=== PATIENT | female | born 1940 | race Caucasian/White ===

== ENCOUNTER 2020-06-02 11:47 | Inpatient (IN) | payer MEDICARE, BC ==
[~2020-06-02] VITALS: Ht 162.6 cm; Wt 50.8 kg
[2020-06-02] MEDS ORDERED: ACETAMINOPHEN ES 500 MG TABLET PO ONE (12:00)
[2020-06-02] MEDS ORDERED: IV NORMAL SALINE 500 ML BAG IV ONE (12:00)
[2020-06-02] MEDS ORDERED: DENO60DI SQ (12:27)
[2020-06-02] MEDS ORDERED: MELO7.5T12 PO (12:27)
[2020-06-02] MEDS ORDERED: FAMO40TA7 PO (12:27)
[2020-06-02] MEDS ORDERED: HYDR25TA4 PO (12:27)
[2020-06-02] MEDS ORDERED: ASPI81TA31 PO (12:27)
[2020-06-02] MEDS ORDERED: GLUC1TAB9 PO (12:27)
[2020-06-02] MEDS ORDERED: OLME40TA12 PO (12:27)
[2020-06-02] MEDS ORDERED: UBID50TA3 PO (12:27)
[2020-06-02] MEDS ORDERED: METO-356 PO (12:27)
[2020-06-02] MEDS ORDERED: OMEG1CAP PO (12:27)
[2020-06-02] MEDS ORDERED: [UNRECOGNIZED DRUG - CODE] PO (12:27)
[2020-06-02] MEDS ORDERED: CYAN100T44 PO (12:27)
[2020-06-02] MEDS ORDERED: ESTRADIOL 0.01% (12:27)
[2020-06-02] MEDS ORDERED: CAL MAG PO (12:27)
[2020-06-02] MEDS ORDERED: FLAX10003 PO (12:27)
[2020-06-02] MEDS ORDERED: VITAMIN D PO (12:27)
[2020-06-02] MEDS ORDERED: ACETAMINOPHEN 650 MG SUPP.RECT RC ONE ×2 (12:49→13:15)
[2020-06-02 13:09] LABS: ALANINE AMINOTRANSFERASE 103 U/L (14-59); ALKALINE PHOSPHATASE 33 U/L (50-136); ASPARTATE AMINOTRANSFERASE 180 U/L (15-37); BILIRUBIN,DIRECT 0.4 mg/dL (0.0-0.2); BILIRUBIN,TOTAL 0.8 mg/dL (0.2-1.0); CARBON DIOXIDE 24 mmol/L (21-32); CHLORIDE 91 mmol/L (98-107); CREATININE 1.8 mg/dL (0.6-1.3); GLUCOSE 118 mg/dL (74-106); TOTAL PROTEIN, SERUM 7.3 g/dL (6.4-8.2); UREA NITROGEN, BLOOD 30 mg/dL (7-18)
--- NOTE | 2020-06-02 13:13 | NUR ---
pt is in room #2a. dr Butler evaluated the pt.
--- NOTE | 2020-06-02 13:33 | NUR ---
MIAN Saeed [phone]
[2020-06-02 13:34] LABS: *BILIRUBIN,URIN NEGATIVE (NEGATIVE); *BLOOD, URINE 3+ (NEGATIVE); *COLOR,URINE YELLOW (YELLOW); *KETONES,URINE 2+ (NEGATIVE); *UROBILINOGEN,URINE 0.2 E.U./dl (NORMAL); LEUKOCYTE ESTERASE ,URINE NEGATIVE (NEGATIVE); NITRITE, URINE NEGATIVE (NEGATIVE); UGLUCOSE NEGATIVE (NEGATIVE)
[2020-06-02 13:35] LABS: POTASSIUM 2.3 mmol/L (3.5-5.1)
[2020-06-02] MEDS: POTASSIUM CHLORIDE 50 ML IV SCH ×5 (14:00→17:00)
[2020-06-02 14:03] LABS: *CLARITY,URINE SLIGHTLY CLOUDY (CLEAR)
[2020-06-02 14:04] LABS: BACTERIA,URINE MANY /HPF (NONE SEEN); SQUAMOUS EPITHELIAL CELL,UR FEW /HPF (NONE SEEN)
[2020-06-02] MEDS ORDERED: POTASSIUM CHLORIDE 200 ML ONE (14:08)
[2020-06-02] MEDS ORDERED: IV NORMAL SALINE 1000 ML BAG IV ONE (14:15)
[2020-06-02] MEDS ORDERED: PIPERACILLIN SODIUM/TAZOBACTAM 3.375 G in IV DEXTROSE 5% 50 ML IV ONE (14:15)
[2020-06-02] MEDS ORDERED: VANCOMYCIN IV 1,000 MG in IV DEXTROSE 5% 250 ML IV ONE (14:15)
[2020-06-02] MEDS ORDERED: PIPERACILLIN/TAZOBACTAM/D5W 50 ML IV ONE (14:47)
[2020-06-02 14:56] LABS: HEMATOCRIT 26.2 % (31.2-41.9)
[2020-06-02 14:58] LABS: EOSINOPHILS % (AUTO) 0.6 % (0.0-7.0); HEMOGLOBIN 8.9 g/dL (10.9-14.3); LYMPHOCYTES # (AUTO) 0.2 K/uL (20.0-40.0); LYMPHOCYTES % (AUTO) 12.4 % (20.5-51.5); MEAN CORPUSCULAR HGB CONC 34 g/dL (32.3-35.6); MEAN CORPUSCULAR VOLUME 82.4 fL (75.5-95.3); MONOCYTES # (AUTO) 1.2 K/uL (2.0-10.0); MONOCYTES % (AUTO) 74.4 % (0.0-11.0); NEUTROPHILS # (AUTO) 0.2 K/uL (1.8-8.9); NEUTROPHILS % (AUTO) 12.6 % (38.5-71.5); RED BLOOD CELL COUNT(AUTO) 3.18 MIL/uL (3.63-4.92)
[2020-06-02 15:16] LABS: PLATELET COUNT (AUTO) 15 K/uL (179-408); WHITE BLOOD COUNT (AUTO) 1.6 K/uL (3.8-11.8)
[2020-06-02] MEDS ORDERED: VANCOMYCIN IV 200 ML ONE (15:31)
[2020-06-02] MEDS ORDERED: ONDANSETRON 4 MG/2 ML VIAL IV PRN (17:00)
[2020-06-02] MEDS ORDERED: ACETAMINOPHEN 325 MG TABLET PO PRN (17:00)
[2020-06-02] MEDS ORDERED: CEFTRIAXONE 1 G in IV DEXTROSE 5% 50 ML IV SCH (17:00)
[2020-06-02] MEDS ORDERED: MORPHINE SULFATE 2 MG/1 ML DISP.SYRIN IV PRN (17:00)
[2020-06-02] MEDS ORDERED: CEFTRIAXONE /D5W 50ML IVPB **ER PYXIS IV ONE (17:19)
[2020-06-02] MEDS ORDERED: TBO-FILGRASTIM 480 MCG/0.8 ML SYRINGE SQ ONE (18:00)
[2020-06-02] MEDS: PIPERACILLIN/TAZO 2.25 G in IV DEXTROSE 5% 50 ML IV SCH (18:08)
[2020-06-02] MEDS ORDERED: PIPERACILLIN/TAZO 2.25 GM VIAL ONE (18:12)
[2020-06-02 18:46] LABS: BAND % (MANUAL) 9 % (0-10); LYMPHOCYTES % (MANUAL) 69 % (20-40); MONOCYTES % (MANUAL) 8 % (2-10); NEUTROPHILS % (MANUAL) 13 % (42-75)
[2020-06-02 18:47] LABS: EOSINOPHILS % (MANUAL) 1 % (0-8)
--- NOTE | 2020-06-02 23:25 | NUR ---
Transfered to 3rd floor Tele via hospital bed with no distress noted.
--- NOTE | 2020-06-02 23:30 | NUR ---
PATIENT ADMITTED ON TELE FLOOR UNDER THE CARE OF DR. VALENCIA. PATIENT AWAKE BUT GARBLE SPEECH. PATIENT TELE MONITOR SINUS RYTHM SINUS TACHY. PATIENT ON REVERSE ISOLATION, PATIENT HAS R AND L BUTTOCK REDNESS, R LATERAL KNEE BRUISE, R LATERAL FOOT, AND R HEEL DTI. AND LEFT KNEE BRUISE. PATIENT HAS DEEP LABORED BREATHING, WILL MEDICATE FOR PAIN. CONT TO MONITOR.
[2020-06-03] VITALS: BP 116/55
[2020-06-03] MEDS ORDERED: PIPERACILLIN/TAZO 2.25 GM VIAL ONE ×2 (00:20→18:17)
[2020-06-03] MEDS: PIPERACILLIN/TAZO 2.25 G in IV DEXTROSE 5% 50 ML IV SCH ×4 (00:40→18:10)
[2020-06-03] MEDS: DOCUSATE SODIUM 100 MG CAPSULE PO SCH ×2 (00:40→21:00)
--- NOTE | 2020-06-03 03:32 | NUR ---
PATIENT DAUGHTER CALLED FROM [place] AND ASKING FOR UPDATE OF THE PATIENT. PATIENT DAUGHTER SAID THAT HER MOTHER HAS [place] DISEASE AND DONT KNOW HOW FAR IS THE DISEASE. DAUGHTER MENTION ALSO THAT HER MOTHER HAS PROLAPSE BLADDER, AND HARD OF HEARING.
[2020-06-03 04:46] VITALS: BP 72/65
[2020-06-03] MEDS ORDERED: IV NS 1000 ML 1,000 ML IV ONE (05:00)
--- NOTE | 2020-06-03 05:02 | NUR ---
PATIENT HAS LOW BP, 70/40, BS 55, TACHYPNEIC, RAPID RESPONSE WAS CALLED, NOTIFY MATTY MEDICAL RECORDS DIRECTOR WITH ORDER.
[2020-06-03 05:11] LABS: ABG BASE EXCESS -11.1 mmol/L; ABG HCO3 12.4 mmol/L; ABG PCO2 21.2 mmHg (35.0-45.0); ABG PH 7.384 (7.350-7.450); ABG PO2 151.2 mmHg (75.0-100.0); ABG SITE RIGHT RADIAL; COHb 0.7 % (0.5-1.5); MetHb 0.4 % (0.0-1.5); VENT MODE Nasal Cannula
[2020-06-03 05:15] VITALS: BP 67/56
[2020-06-03] MEDS ORDERED: DEXTROSE 50% 50 ML DISP.SYRIN IV PRN ×2 (05:15→11:00)
[2020-06-03] MEDS: BLOOD SUGAR DIAGNOSTIC 1 EACH STRIP VI SCH ×6 (05:16→22:55)
[2020-06-03] MEDS ORDERED: SODIUM BICARBONATE 8.4% 50 MEQ/50 ML DISP.SYRIN IV STA (05:20)
[2020-06-03 05:30] VITALS: BP 80/42
--- NOTE | 2020-06-03 05:36 | NUR ---
ABG RESULT REPORTED TO MATTY WITH ORDER OF SODIUM BY CARB.
[2020-06-03 05:50] VITALS: BP 72/65
--- NOTE | 2020-06-03 06:25 | NUR ---
Pt found to be hypotensive SBP 70s tachycardic 120s and [id number] sat 100%; Rapid response called at 0446; SBP in the 70s and 60's; Bolus 1 liter started ; accucheck around that time is 56; D50 given, relayed To Latia CREDIT RATING INSPECTOR and orders made and carried out; ABG and EKG done; sodium bicarb given per orders; SBP after one liter remains in the 70s; Dr Jeffery ordered pt to move to ICU status and start MAURICIO; report given to Nikita Barrientos RN.
--- NOTE | 2020-06-03 06:26 | NUR ---
PATIENT TRANSFERED DOWN FROM 3RD FLOOR TELE FOR HYPOTENSION VIA HOSPITAL BED.
[2020-06-03] MEDS ORDERED: PHENYLEPHRINE IV 50 MG in IV NORMAL SALINE 245 ML IV PRN (06:30)
--- NOTE | 2020-06-03 06:37 | NUR ---
NOTIFY REMINGTON TORRES SR REGARDING PATIENT BEING TRANSFER TO CCU UNIT DUE LOW BP, TACHYPNEA. REMINGTON GUTIERRES AGREED WITH THE BLOOD TRANSFUSION WHEN ITS AVAILABLE, LANEY MCGOWAN BEING THE WITNESS.
[2020-06-03] MEDS ORDERED: PHENYLEPHRINE 10 MG/1 ML VIAL ONE (06:46)
[2020-06-03 07:56] LABS: IRON, SERUM 13 ug/dL (50-175)
--- NOTE | 2020-06-03 08:00 | NUR ---
DR BARRIGA AND CARLOS LEE WER PAGED TO REPORT CRITICAL RESULTS , TROPONIN = 1.O14, LACTIC ACID = 7.7 .
[2020-06-03 08:08] LABS: ALANINE AMINOTRANSFERASE 97 U/L (14-59); ALKALINE PHOSPHATASE 24 U/L (50-136); ASPARTATE AMINOTRANSFERASE 210 U/L (15-37); BILIRUBIN,TOTAL 0.8 mg/dL (0.2-1.0); CARBON DIOXIDE 18 mmol/L (21-32); CHLORIDE 103 mmol/L (98-107); CHOLESTEROL 72 mg/dL (<200); CREATININE 3.8 mg/dL (0.6-1.3); GLUCOSE 163 mg/dL (74-106); MAGNESIUM 2.7 mg/dL (1.8-2.4); POTASSIUM 2.9 mmol/L (3.5-5.1); TOTAL PROTEIN, SERUM 4.6 g/dL (6.4-8.2); TRIGLYCERIDES 166 MG/DL (30-150); UREA NITROGEN, BLOOD 50 mg/dL (7-18)
[2020-06-03 08:35] LABS: HDL CHOLESTEROL 10 mg/dL (40-60)
[2020-06-03] MEDS ORDERED: OMEGA-3 FATTY ACIDS/FISH OIL CAPSULE PO SCH (09:00)
[2020-06-03] MEDS ORDERED: METOPROLOL SUCCINATE XL 25 MG TAB.SR.24H PO SCH (09:00)
[2020-06-03] MEDS: CYANOCOBALAMIN 1,000 MCG TABLET PO SCH (09:00)
[2020-06-03] MEDS ORDERED: METOPROLOL SUCCINATE XL 25 MG TAB.SR.24H PO ONE (09:19)
[2020-06-03] MEDS ORDERED: FAMOTIDINE 20 MG TABLET ONE (09:19)
[2020-06-03] MEDS: FAMOTIDINE 20 MG TABLET PO SCH (09:20)
[2020-06-03] MEDS ORDERED: CYANOCOBALAMIN 1,000 MCG TABLET ONE (09:20)
[2020-06-03] MEDS ORDERED: ASCORBIC ACID 500 MG TABLET ONE (09:21)
[2020-06-03] MEDS: ASCORBIC ACID 500 MG TABLET PO SCH (09:21)
[2020-06-03] MEDS ORDERED: POTASSIUM CHLORIDE 50 ML ONE (09:29)
[2020-06-03] MEDS ORDERED: POTASSIUM CHLORIDE 20 MEQ in IV NS 1000 ML 1,000 ML IV PRN (09:30)
[2020-06-03] MEDS ORDERED: POTASSIUM CHLORIDE 50 ML IV SCH (09:30)
[2020-06-03 09:48] LABS: EOSINOPHILS % (AUTO) 0.8 % (0.0-7.0); HEMATOCRIT 25.8 % (31.2-41.9); HEMOGLOBIN 8.3 g/dL (10.9-14.3); LYMPHOCYTES # (AUTO) 0.3 K/uL (20.0-40.0); LYMPHOCYTES % (AUTO) 11.7 % (20.5-51.5); MEAN CORPUSCULAR HEMOGLOBIN 27.4 uug (24.7-32.8); MEAN CORPUSCULAR HGB CONC 32 g/dL (32.3-35.6); MEAN CORPUSCULAR VOLUME 84.8 fL (75.5-95.3); MONOCYTES # (AUTO) 2.2 K/uL (2.0-10.0); MONOCYTES % (AUTO) 82.1 % (0.0-11.0); NEUTROPHILS # (AUTO) 0.1 K/uL (1.8-8.9); NEUTROPHILS % (AUTO) 5.4 % (38.5-71.5); RED BLOOD CELL COUNT(AUTO) 3.04 MIL/uL (3.63-4.92); WHITE BLOOD COUNT (AUTO) 2.7 K/uL (3.8-11.8)
[2020-06-03] MEDS ORDERED: SODIUM BICARBONATE 8.4% 50 MEQ/50 ML DISP.SYRIN IV ONE ×2 (10:00→10:19)
[2020-06-03 10:29] LABS: ABG BASE EXCESS -7.9 mmol/L; ABG HCO3 15.4 mmol/L; ABG PCO2 24.4 mmHg (35.0-45.0); ABG PH 7.418 (7.350-7.450); ABG PO2 135.2 mmHg (75.0-100.0); ABG SITE LEFT BRACHIAL; COHb 1.5 % (0.5-1.5); MetHb 0.5 % (0.0-1.5); VENT MODE Nasal Cannula
[2020-06-03 10:31] LABS: PLATELET COUNT (AUTO) 10 K/uL (179-408)
--- NOTE | 2020-06-03 10:32 | NUR ---
dr Lofton was paged to report critical platelets count. Transfusion of 2 units of platelets was ordered by Cornelia. Tavia for blood bank report.
[2020-06-03] MEDS ORDERED: INSULIN REGULAR, HUMAN 300 UNIT/3 ML VIAL SQ PRN (11:00)
[2020-06-03] MEDS ORDERED: BLOOD SUGAR DIAGNOSTIC 1 EACH STRIP VI SCH (11:30)
--- NOTE | 2020-06-03 12:36 | NUR ---
LABORATORY WAS CALLED TO FIND OUT WHEN PLATELETS FOR TRANSFUSION WILL BE READY. DR BARRIGA TALKED TO LABORATORY TECHNITIANS TO VERIFY THE ORDER FOR PLATELETS TRANSFUSION.
--- NOTE | 2020-06-03 18:24 | NUR ---
Dr Lofton was paged to give updates about pt's condition.
--- NOTE | 2020-06-03 19:00 | NUR ---
Patient laying on gurny only responding to painful stimuli, tachypna . On 6 Liters N/C satting at 97%. Neosynephrine drip with rate if 2.052 mcg/kg/min infusing. ST on monitor.
[2020-06-03] MEDS ORDERED: PHENYLEPHRINE IV 100 MG in IV NORMAL SALINE 240 ML IV PRN (21:15)
--- NOTE | 2020-06-03 21:30 | NUR ---
Per Stella Money Manager only 1unit of FFP will be issue today due to shortage in supplies. 2nd will be issue sometime tommorow.
--- NOTE | 2020-06-03 21:45 | NUR ---
Started 1st unit FFP as ordered.
[2020-06-03 23:02] LABS: EOSINOPHILS % (MANUAL) 5 % (0-8); LYMPHOCYTES % (MANUAL) 20 % (20-40); MONOCYTES % (MANUAL) 64 % (2-10); NEUTROPHILS % (MANUAL) 11 % (42-75)
--- NOTE | 2020-06-03 23:30 | NUR ---
1st unit of FFP completed with no reaction noted.
[2020-06-04] MEDS: PIPERACILLIN/TAZO 2.25 G in IV DEXTROSE 5% 50 ML IV SCH ×4 (00:15→17:22)
[2020-06-04 02:16] LABS: BASOPHILS # (AUTO) 0.1 K/uL (0.0-8.0); BASOPHILS % (AUTO) 2.2 % (0.0-2.0); EOSINOPHILS # (AUTO) 0.4 K/uL (0.0-0.7); HEMATOCRIT 26.4 % (31.2-41.9); HEMOGLOBIN 8.9 g/dL (10.9-14.3); LYMPHOCYTES # (AUTO) 0.1 K/uL (20.0-40.0); LYMPHOCYTES % (AUTO) 1.1 % (20.5-51.5); MEAN CORPUSCULAR HEMOGLOBIN 28.4 uug (24.7-32.8); MEAN CORPUSCULAR HGB CONC 34 g/dL (32.3-35.6); MEAN CORPUSCULAR VOLUME 84.2 fL (75.5-95.3); MONOCYTES # (AUTO) 1.9 K/uL (2.0-10.0); MONOCYTES % (AUTO) 31.3 % (0.0-11.0); NEUTROPHILS # (AUTO) 3.6 K/uL (1.8-8.9); NEUTROPHILS % (AUTO) 59.4 % (38.5-71.5); RED BLOOD CELL COUNT(AUTO) 3.14 MIL/uL (3.63-4.92); WHITE BLOOD COUNT (AUTO) 6.1 K/uL (3.8-11.8)
[2020-06-04 02:40] LABS: PLATELET COUNT (AUTO) 23 K/uL (179-408)
[2020-06-04] MEDS ORDERED: PIPERACILLIN/TAZOBACTAM/D5W 50 ML ONE ×3 (05:52→17:21)
[2020-06-04 06:17] LABS: ALANINE AMINOTRANSFERASE 216 U/L (14-59); ALKALINE PHOSPHATASE 25 U/L (50-136); ASPARTATE AMINOTRANSFERASE 327 U/L (15-37); BILIRUBIN,TOTAL 0.9 mg/dL (0.2-1.0); CARBON DIOXIDE 18 mmol/L (21-32); CHLORIDE 110 mmol/L (98-107); CREATININE 5.4 mg/dL (0.6-1.3); GLUCOSE 91 mg/dL (74-106); MAGNESIUM 2.8 mg/dL (1.8-2.4); PHOSPHOROUS 4.9 mg/dL (2.5-4.9); POTASSIUM 4.6 mmol/L (3.5-5.1); TOTAL PROTEIN, SERUM 4.8 g/dL (6.4-8.2); UREA NITROGEN, BLOOD 70 mg/dL (7-18)
[2020-06-04] MEDS: BLOOD SUGAR DIAGNOSTIC 1 EACH STRIP VI SCH ×4 (06:44→21:41)
--- NOTE | 2020-06-04 07:04 | NUR ---
Recieved Pt in bed, tachycardic and tachypnea. Continue w/ Neosynepherine and IVF.
--- NOTE | 2020-06-04 07:10 | NUR ---
Reposition pt for comfort, pt only responses to painful stimuli.
--- NOTE | 2020-06-04 07:39 | NUR ---
Critical lab values comunicated w/ Dr Lofton, orders recieved.
[2020-06-04] MEDS ORDERED: IV D5/ 0.9% NACL 1,000 ML IV SCH (07:45)
--- NOTE | 2020-06-04 07:49 | NUR ---
Changed IVF to D5ns per dr Lofton order.
--- NOTE | 2020-06-04 08:15 | NUR ---
BP decreased to 85/42, increased Neosynephrine to 2.1 mcg/kg/min. Will continue to monitor.
[2020-06-04] MEDS: ASCORBIC ACID 500 MG TABLET PO SCH (08:28)
[2020-06-04] MEDS: CYANOCOBALAMIN 1,000 MCG TABLET PO SCH (08:28)
--- NOTE | 2020-06-04 09:00 | NUR ---
Pt placed on BIPAP by RT per Dr Elio cortes.
--- NOTE | 2020-06-04 09:00 | NUR ---
Pt's HR changed to SVT at the rate of 170's. Paged Dr Lofton and Dr Romo(learning developer).
--- NOTE | 2020-06-04 09:00 | NUR ---
PT PLACED ON BIPAP PER MD ORDER. SETTINGS OF IPAP 15, EPAP 5, RATE 22, AND 100% FIO2. PT IS TACHYPNEIC AND TACHYCARDIC, RN AND ER MD AT BEDSIDE. WILL CONTINUE TO MONITOR.
--- NOTE | 2020-06-04 09:10 | NUR ---
DR Ballard spoke to Dr Romo.ER Md at the bedside to evaluate pt. Pt remaines in SVT w/ HR 183, BP DECREASED TO 59/32.Per Md order increased Neosynephrine to 3 mcg/kg/min.
--- NOTE | 2020-06-04 09:28 | NUR ---
Codioverted the pt x2 w/ 150 J and 200 J accordingly. Pt remaines SVT.
[2020-06-04] MEDS ORDERED: AMIODARONE HCL IV 450 MG in IV DEXTROSE 5% 250 ML IV PRN (09:30)
[2020-06-04] MEDS ORDERED: AMIODARONE HCL IV 150 MG in IV DEXTROSE 5% 100 ML IV ONE (09:30)
--- NOTE | 2020-06-04 09:30 | NUR ---
Dr Lofton at the bedside.
[2020-06-04] MEDS ORDERED: AMIODARONE HCL 150 MG/3 ML VIAL IV ONE (09:32)
[2020-06-04] MEDS ORDERED: NOREPINEPHRINE BITARTRATE 4 MG/4 ML VIAL IV ONE (09:38)
--- NOTE | 2020-06-04 09:40 | NUR ---
Fantasma campos in ED - 06/04/20 at 1456 by ROSALIO 300 mg of Amiodrone IVP given per Dr Elio cortes.
--- NOTE | 2020-06-04 09:45 | NUR ---
Started Pt on Levophed Per Dr Elio harmon, at 1mcg/kg/min. BP is 58/28.
--- NOTE | 2020-06-04 09:52 | NUR ---
Pt converted to ST at rate of 104.
[2020-06-04] MEDS: FAMOTIDINE 20 MG TABLET PO SCH (10:21)
[2020-06-04] MEDS ORDERED: FAMOTIDINE. 20 MG/2 ML VIAL IV ONE (10:25)
--- NOTE | 2020-06-04 10:30 | NUR ---
Decreased Neosynephrine to 2.5mcg/kg/min and Levophed to 0.8 mcg/min/kg. Bp stable at this time.
[2020-06-04] MEDS ORDERED: IV D5/ 0.9% NACL 1,000 ML IV PRN (11:00)
[2020-06-04] MEDS ORDERED: NOREPINEPHRINE BITARTRATE 8 MG in IV NORMAL SALINE 242 ML IV PRN (11:15)
[2020-06-04] MEDS ORDERED: DEXTROSE 5% IV ONE (11:15)
[2020-06-04] MEDS ORDERED: AMIODARONE HCL IV ONE (11:15)
[2020-06-04] MEDS: INSULIN REGULAR, HUMAN 300 UNIT/3 ML VIAL SQ PRN ×3 (12:17→21:46)
[2020-06-04] MEDS ORDERED: INSULIN REGULAR, HUMAN 300 UNIT/3 ML VIAL ONE (12:19)
[2020-06-04] MEDS ORDERED: VANCOMYCIN IV 500 MG in IV DEXTROSE 5% 100 ML IV SCH (14:00)
[2020-06-04] MEDS ORDERED: VANCOMYCIN IV 750 MG in IV DEXTROSE 5% 250 ML IV SCH (14:00)
--- NOTE | 2020-06-04 14:25 | NUR ---
Notified Dr Lofton of Pt's Increased HR, IVF ordered and started.
--- NOTE | 2020-06-04 14:25 | NUR ---
PICC line ordered per Dr Lofton.
--- NOTE | 2020-06-04 14:33 | NUR ---
PICC line Rn at the bedside.
[2020-06-04] MEDS ORDERED: VANCOMYCIN HCL 500 MG VIAL ONE (14:41)
[2020-06-04] MEDS ORDERED: IV NORMAL SALINE 1000 ML BAG IV ONE (14:45)
--- NOTE | 2020-06-04 14:50 | NUR ---
Decreased Neosypherine to 1.5 mcg/kg/min. Pt's BP is maintaning.
--- NOTE | 2020-06-04 14:55 | NUR ---
RT Femoral PICC placed by PICC RN. Flushed per protocol.
--- NOTE | 2020-06-04 15:23 | NUR ---
Pt BP lowered to 88/48. Increased Neosynephrine to 2mcg/kg/min.
[2020-06-04] MEDS ORDERED: NOREPINEPHRINE BITARTRATE 32 MG in IV NORMAL SALINE 218 ML IV PRN (15:45)
--- NOTE | 2020-06-04 16:10 | NUR ---
Spoke to Dr Romo regarding Pt's increased HR. Orders recieved.
[2020-06-04] MEDS ORDERED: ACETAMINOPHEN 650 MG SUPP.RECT RC PRN (16:15)
[2020-06-04] MEDS ORDERED: ACETAMINOPHEN 650 MG SUPP.RECT RC ONE (16:29)
--- NOTE | 2020-06-04 17:07 | NUR ---
BIPAP setting changed by RT. 15/5, RR 22, and 40% FIO2.
[2020-06-04] MEDS ORDERED: CEFEPIME HCL 1 G in IV DEXTROSE 5% 50 ML IV SCH (18:00)
[2020-06-04] MEDS ORDERED: CEFEPIME HCL 1 G VIAL ONE (18:14)
--- NOTE | 2020-06-04 18:39 | NUR ---
Verbal consent recieved for Benji cath insertion from Oli Gonzalez.
--- NOTE | 2020-06-04 18:39 | NUR ---
Spoke to Oli Gonzalez, for Benji cath placement.
--- NOTE | 2020-06-04 19:18 | NUR ---
RT femoral Benji cath placed by PA, pt tolorated well.
[2020-06-04] MEDS: DOCUSATE SODIUM 100 MG CAPSULE PO SCH (21:33)
--- NOTE | 2020-06-05 00:38 | NUR ---
Patient remains on continuous monitoring with vasopressors infusing at maximum doses. Venous access are patent. Cordarone, Neosynephrine, and Norepinephrine infusing. Respiratory therapist in place to adjust BIPAP. Increased to 50% from 30%. Patient repositioned for comfort. On critical care monitoring.
[2020-06-05 01:00] VITALS: BP 74/34
--- NOTE | 2020-06-05 01:00 | NUR ---
Discussed patient's status with Dr. Waterman. Patient is hemodynamically declining; and unable to maintain blood pressure. On critical monitoring.
--- NOTE | 2020-06-05 03:25 | NUR ---
Blanca, daughter called. I discussed the need to contact her father and brother to update them of her mother's condition; and the significant change in status. She wanted to verbalize her thoughts to Mom. I tranferred the call to the cell phone available and provided her and patient privacy. I discussed the critical values of patient's vital signs.
--- NOTE | 2020-06-05 03:35 | NUR ---
At 0330, patient went asystole. Blood pressure 0/0; respiratory effort 0, respiratory rate 0, pulse rate 0. Dr. Waterman was notified of findings. Verification via stethoscope was performed. Cardiac sound = none; respiratory effort and rate, zero without any lung prado air exchange noted; pulses non-palpable to radial, brachial, and carotid. All vasopressor medication stopped.
--- NOTE | 2020-06-05 03:52 | NUR ---
At 0315, I called Oli, patient's to speak over the phone since the vital signs are significantly declining. Oli and patient was given privacy to express his thoughts.
--- NOTE | 2020-06-05 05:05 | NUR ---
Hands off report received from night court magistrate.
--- NOTE | 2020-06-05 05:30 | NUR ---
Received telephone call from pt's daughter who stated she lives in [place], she is aware the pt and her father (pt's ) has made arrangements with a mortuary for the pt to be picked up. Per nursing inspection supervisor she is aware and the mortuary will pick the pt up from the ER.
--- NOTE | 2020-06-05 06:00 | NUR ---
Postmortem care provided. Pending miner pick by mortuary.
[2020-06-05 09:35] LABS: COMPLEMENT, C3 SERUM 53 mg/dL (82-167); COMPLEMENT, C4 SERUM 17 mg/dL (12-38)
[2020-06-05 11:14] LABS: HEPATITIS B SURFACE AB Non Reactive (.); HEPATITIS B SURFACE AG Negative (Negative)
--- NOTE | 2020-06-05 12:07 | NUR ---
Pt picked up by [facility].
--- NOTE | 2020-06-06 07:23 | NUR ---
06/03/20 1230 morphine 1mg given, 1mg wasted.
--- NOTE | 2020-06-06 07:25 | NUR ---
morpine 1mg iv witnessed by charge nurse.
[2020-06-08 10:09] LABS: *ANTI-SCLERODERMA-70 AB <0.2 AI (0.0-0.9); *SJOGREN'S ANTI-SS-A <0.2 AI (0.0-0.9); *SJOGREN'S ANTI-SS-B <0.2 AI (0.0-0.9); *SMITH ANTIBODIES <0.2 AI (0.0-0.9); ANTI-DNA(DS) AB, QN 1 IU/mL (0-9)
== END 2020-06-05 03:30 | disposition expired | DRG 871 ==
LOC: ER 11:47 → TRANSITION 15:38 → TELE3 23:14 → TRANSITION 06-03 05:58
PROVIDERS: ADMIT Internal Medicine; ATTEND Internal Medicine
PROC: 30233N1 Transfusion of Nonautologous Red Blood Cells into Peripheral Vein, Percutaneous Approach (ICD-10-PCS; principal; 2020-06-02)
PROC: 5A2204Z Restoration of Cardiac Rhythm, Single (ICD-10-PCS; 2020-06-04)
PROC: 06HY33Z Insertion of Infusion Device into Lower Vein, Percutaneous Approach (ICD-10-PCS; 2020-06-04)
DX: A41.9 Sepsis, unspecified organism (principal); I21.A1 Myocardial infarction type 2; N17.0 Acute kidney failure with tubular necrosis; E43 Unspecified severe protein-calorie malnutrition; J69.0 Pneumonitis due to inhalation of food and vomit; R65.21 Severe sepsis with septic shock; N39.0 Urinary tract infection, site not specified; D61.818 Other pancytopenia; D68.69 Other thrombophilia; E87.1 Hypo-osmolality and hyponatremia; G10 Huntington's disease; G93.40 Encephalopathy, unspecified; I47.1 Supraventricular tachycardia; E86.0 Dehydration; E87.6 Hypokalemia; I48.0 Paroxysmal atrial fibrillation; M81.0 Age-related osteoporosis without current pathological fracture; M19.90 Unspecified osteoarthritis, unspecified site; Z86.73 Personal history of transient ischemic attack (TIA), and cerebral infarction without residual deficits; Z79.82 Long term (current) use of aspirin; Z20.828 Contact with and (suspected) exposure to other viral communicable diseases; R62.7 Adult failure to thrive; I10 Essential (primary) hypertension; R74.01 Elevation of levels of liver transaminase levels; E27.8 Other specified disorders of adrenal gland; B96.20 Unspecified Escherichia coli [E. coli] as the cause of diseases classified elsewhere; Z66 Do not resuscitate; F01.50 Vascular dementia, unspecified severity, without behavioral disturbance, psychotic disturbance, mood disturbance, and anxiety
CPT/HCPCS: 36415; 36600; 70030-TC; 70450; 71045; 76770; 82378; 83550; 83605; 83735; 84100; 84443; 85025; 85651; 85730; 86038; 86160; 86706; 86803; 86850; 86900; 86901; 87040; 87077; 87086; 87340; 93005; 93307; 94660; A4663; G0378; J0282; J0692; J0696; J1442; J1815; J2270; J2370; J2543; J3370; J3480; J3490; J7030; J7050; J7060; P9035-BL; U0003